=== PATIENT | female | born 1980 ===

== ENCOUNTER 2018-01-16 13:45 | Inpatient (IN) | payer OTHER ==
[~2018-01-16] VITALS: Ht 167.6 cm; Wt 90.7 kg
[2018-01-24] MEDS ORDERED: PRENATAL 19 TA1 EAC1 PO (02:58)
== END 2018-01-26 14:06 | disposition home or self-care (01) | DRG 807 ==
LOC: LDR 01-23 13:45 → OB/GYN 01-24 19:34
PROC: 10E0XZZ Delivery of Products of Conception, External Approach (ICD-10-PCS; principal; 2018-01-24)
PROC: 4A1HXCZ Monitoring of Products of Conception, Cardiac Rate, External Approach (ICD-10-PCS; 2018-01-24)
DX: O80 Encounter for full-term uncomplicated delivery (principal); Z37.0 Single live birth; Z3A.40 40 weeks gestation of pregnancy